=== PATIENT | female | born 1970 | race Caucasian/White ===

== ENCOUNTER 2023-07-03 10:48 | Outpatient (CLI) | payer OTHER, SELFPAY ==
--- NOTE | 2023-07-03 11:00 | XR_ITS ---
WS: [id number] ANKLE LEFT TECHNIQUE: 2 views of the left ankle CLINICAL INFORMATION: H/O FX W/NON UNION COMPARISON: None. FINDINGS: Tiny plantar calcaneal spur. Normal ankle mortise. Normal medial and lateral malleolus. Normal talar dome. Prior hardware fixation at the second TMT joint. This would be better evaluated with foot radio graphs or CT. IMPRESSION: 1. Normal ankle mortise. 2. Normal medial and lateral malleolus. 3. Prior hardware fixation at the second TMT joint
== END 2023-07-03 10:49 | disposition home or self-care (01) ==
PROVIDERS: PCP Emergency Medicine; Visit Provider Dermatology
DX: Z02.71 Encounter for disability determination (principal); S82.892K Other fracture of left lower leg, subsequent encounter for closed fracture with nonunion; X58.XXXD Exposure to other specified factors, subsequent encounter; Z98.890 Other specified postprocedural states
CPT/HCPCS: 73600

== ENCOUNTER 2023-08-21 10:48 | Outpatient (CLI) | payer OTHER, SELFPAY ==
--- NOTE | 2023-08-21 11:01 | XR_ITS ---
WS: [id number] XR foot LT 2V [id number] REASON FOR EXAM: FOOT PAIN FINDINGS: No comparison examination. No fracture or focal bone lesion. No erosion or periosteal reaction. The joint spaces of the forefoot are intact and relatively well preserved. Previous, remote, arthrodesis of the second tarsal metatarsal joint. Associated osteotomy of the prox imal second metatarsal. Without the oblique view cannot evaluate the third tarsal metatarsal joint. There is mild narrowing of the fourth metatarsal tarsal joint with mild subchondral sclerosis. The remainder of the joint spaces in the midfoot are intact and relatively well preserved. The subtalar joint is intact and relatively well preserved. IMPRESSION: Previous arthrodesis.
== END 2023-08-21 10:49 | disposition home or self-care (01) ==
LOC: RAD 10:52
PROVIDERS: PCP Emergency Medicine; Visit Provider Dermatology
DX: Z02.71 Encounter for disability determination (principal); M79.672 Pain in left foot; Z98.1 Arthrodesis status
CPT/HCPCS: 73620